=== PATIENT | male | born 1990 | race Caucasian/White ===

== ENCOUNTER 2018-07-17 07:01 | Emergency (ER) | payer BC, OTHER ==
--- NOTE | 2018-07-17 07:15 | EDPHY ---
H & P Time Seen by Provider: 07/17/18 07:13 HPI/ROS: CHIEF COMPLAINT: Chest pain and anxiety HISTORY OF PRESENT ILLNESS: 28-year-old man has a history of anxiety and ran out of his Klonopin about 3 weeks ago. He presents today with 1 week of symptoms in his chest. Patient says he has had a lot of stressors recently with a new job, a new puppy, a friend about 2 months ago. He says he has been out of his Klonopin because things have been just so busy the last 2 weeks with a new computer programming class that he is taking. He has not contacted his prescribing physician which is Dr. Santos psychiatrist at [facility]. Patient for the last week says he feels like he is having chest discomfort which is constant and similar to previous anxiety. He says it "feels like it is pumping molasses" in his chest, occasionally associated with difficulty breathing and feeling exhausted. He tells me that intermittently both hands feel cold left slightly greater than the right but denies numbness or tingling in the left arm to me. Not better worse with breathing or exertion. No radiation. Symptoms mild but continuous. REVIEW OF SYSTEMS: Eye: no change in vision ENT: Chronic toothache unchanged Cardiac: HPI Pulmonary: Not coughing or hemoptysis but a little bit of associated shortness of breath Abdomen: No vomiting or abdominal pain but a little bit of nausea which is consistent with his anxiety and decreased oral intake. Musculoskeletal: no back pain or leg swelling Skin: no rash Neuro: no headache Constitutional: no fever : no urinary symptoms A comprehensive 10 point review of systems is otherwise negative aside from elements mentioned in the history of present illness. PAST MEDICAL HISTORY: Includes bipolar disorder Family history: Negative for venous thromboembolism or premature coronary disease. Negative for hypercholesterolemia diabetes or hypertension. Social history: Tobacco smoker, no recent cocaine. No recent travel surgery or immobilization. General Appearance: Alert and conversant, cooperative. Eyes: No scleral icterus. ENT, Mouth: Normal mucous membranes. Respiratory: Normal respiratory effort, breath sounds equal, lungs are clear to auscultation. No rales or rhonchi. Cardiovascular: Regular rate and rhythm. No murmurs. Gastrointestinal: Abdomen is soft and non tender. Neurological: Alert, face symmetric, normal motor and sensory in extremities. Ambulatory, not ataxic. Skin: Warm and dry, no rashes. Musculoskeletal: No calf tenderness. Psychiatric: Not agitated. Appears stable, he describes his mood as hypomanic, no SI or hallucinations. Emergency Department course/MDM: Patient presents with chest discomfort which I think would be unlikely to be an acute emergent medical condition. It is most consistent with persistent anxiety. He does admit to sleeping only 2 or 3 hr a night, does have a prescription for Seroquel for sleep that he has not used. I advised him that I thought that would be a safe way to address his insomnia, until he can talk to his primary psychiatrist this week. He is supposed to see his therapist this Thursday. Smoking Status: Current every day smoker Constitutional: Initial Vital Signs Temperature (C) 36.9 C 07/17/18 07:05 Heart Rate 75 07/17/18 07:05 Respiratory Rate 19 07/17/18 07:05 Blood Pressure 103/84 H 07/17/18 07:05 O2 Sat (%) 99 07/17/18 07:05 O2 Delivery Mode Room Air Allergies/Adverse Reactions: No Known Allergies Allergy (Verified 07/17/18 07:02) Home Medications: Medication Instructions Recorded Clonazepam 07/17/18 Depakote 07/17/18 Propranolol HCl 07/17/18 Wellbutrin 100mg (*) 07/17/18 Medical Decision Making - Diagnostics EKG Interpretation: 12-lead EKG interpreted by me; official reading is in computer system. My interpretation is sinus rhythm with early repolarization, no acute ischemic changes. Differential Diagnosis: Differential diagnosis considered for chest pain including but not limited to myocardial ischemia, aortic dissection, pericarditis, pulmonary embolus, chest wall pain, pleural inflammation and pulmonary infectious causes. Departure - Departure Disposition: Home, Routine, Self-Care Clinical Impression: Anxiety Chest pain Qualifiers: Chest pain type: unspecified Qualified Code(s): R07.9 - Chest pain, unspecified Condition: Good Instructions: Chest Pain (ED) Additional Instructions: Okay to take your Seroquel at night as needed (as prescribed) for sleep. Referrals: NONE *PRIMARY CARE P,. [Primary Care Provider] - As per Instructions (Dr. Santos )
--- NOTE | 2018-07-17 07:20 | CPEKG ---
Test Reason : OPEN Blood Pressure : / mmHG Vent. Rate : 076 BPM Atrial Rate : 079 BPM P-R Int : 136 ms QRS Dur : 082 ms QT Int : 379 ms P-R-T Axes : 070 076 066 degrees QTc Int : [address] elev, probable normal early repol pattern Confirmed by Nick Pedraza ([id number]) on 07/17/2018 7:20:15 AM Referred By: Confirmed By:Nick Pedraza
[2018-07-17 08:05] VITALS: BP 118/82
== END 2018-07-17 08:04 | disposition home or self-care (01) ==
DX: R07.9 Chest pain, unspecified (principal); F41.9 Anxiety disorder, unspecified